=== PATIENT | male | born 1950 | race Caucasian/White ===

== ENCOUNTER 2023-06-03 08:11 | Outpatient (CLI) | payer OTHER, MEDICARE, SELFPAY ==
[2023-06-03 19:32] LABS: Alanine Aminotransferase 20 U/L (6-50); Albumin Level 3.5 g/dL (3.5-5.1); Alkaline Phosphatase 50 U/L (38-126); Anion Gap 4 mmol/L (8-16); Aspartate Amino Transferase 29 U/L (17-59); Bilirubin,Total 0.4 mg/dL (0.2-1.3); Blood Urea Nitrogen 22 mg/dL (9-20); Calcium 8.6 mg/dL (8.4-10.2); Carbon Dioxide 27 mmol/L (22-30); Chloride 107 mmol/L (98-107); Cholesterol 130 mg/dL (0-200); Estimated Glomerular Filt Rate > 60; Glucose 111 mg/dL (65-110); HDL Direct 33 mg/dL; Potassium 4.2 mmol/L (3.4-5.0); Sodium 138 mmol/L (137-145); Triglycerides 104 mg/dL (<150)
[2023-06-03 19:42] LABS: LDL Cholesterol Direct 75 mg/dL
[2023-06-04 17:38] LABS: Prostate Specific Antigen 1.5 ng/mL (< OR = 4.0)
== END 2023-06-03 08:12 | disposition home or self-care (01) ==
PROVIDERS: PCP Family Medicine; Visit Provider Physician Assistant
DX: E11.9 Type 2 diabetes mellitus without complications (principal); E78.5 Hyperlipidemia, unspecified; I10 Essential (primary) hypertension; Z12.5 Encounter for screening for malignant neoplasm of prostate
CPT/HCPCS: 36415; 80053; 80061; 83036; 84153; G0103

== ENCOUNTER 2023-12-20 11:55 | Outpatient (CLI) | payer MEDICARE, SELFPAY ==
[2023-12-20 17:22] LABS: Basophils Absolute Auto 0.1 K/mm3 (0.0-0.1); Eosinophils Absolute Auto 0.4 K/mm3 (0-0.3); Eosinophils Percent Auto 4.5 % (0-4.4); Hematocrit 42.3 % (42.0-52.0); Immature Granulocyte Absolute 0.02 K/mm3 (0.00-0.031); Immature Granulocyte Percent A 0.2 % (0-0.5); Lymphocytes Absolute Auto 2.59 K/mm3 (0.9-3.2); Lymphocytes Percent Auto 32.3 % (18.3-44.2); Mean Corpuscular HGB Conc 33.1 g/dl (32-36); Mean Corpuscular Hemoglobin 30.6 pg (26-34); Mean Corpuscular Volume 92.6 fl (80-100); Mean Platelet Volume 10.7 fl (7.4-10.4); Monocytes Absolute Auto 0.6 K/mm3 (0.1-0.6); Monocytes Percent Auto 6.9 % (2.6-8.5); Neutrophils Absolute Auto 4.4 K/mm3 (1.3-6.7); Neutrophils Percent Auto 55.1 % (45.5-73.1); Platelet Count Result 199 k/mm3 (150-375); Red Blood Count 4.57 M/mm3 (4.6-6.20); Red Cell Distribution Width 13.1 % (11.5-14.5)
[2023-12-20 17:31] LABS: Hemoglobin A1C 5.9 % (<5.7)
[2023-12-20 18:33] LABS: Alanine Aminotransferase 20 U/L (6-50); Albumin Level 3.8 g/dL (3.5-5.1); Alkaline Phosphatase 54 U/L (38-126); Anion Gap 7 mmol/L (4-12); Aspartate Amino Transferase 31 U/L (17-59); Bilirubin,Total 0.4 mg/dL (0.2-1.3); Blood Urea Nitrogen 27 mg/dL (9-20); Calcium 9.4 mg/dL (8.4-10.2); Carbon Dioxide 24 mmol/L (22-30); Chloride 108 mmol/L (98-107); Cholesterol 125 mg/dL (0-200); Estimated Glomerular Filt Rate > 60; Glucose 117 mg/dL (65-110); HDL Direct 35 mg/dL; Potassium 3.8 mmol/L (3.4-5.0); Sodium 139 mmol/L (137-145); Triglycerides 120 mg/dL (<150)
[2023-12-20 18:44] LABS: LDL Cholesterol Direct 74 mg/dL
== END 2023-12-20 11:56 | disposition home or self-care (01) ==
LOC: ANHGOSHLAB 11:58
PROVIDERS: PCP Family Medicine; Visit Provider Physician Assistant
DX: D64.9 Anemia, unspecified (principal); E11.9 Type 2 diabetes mellitus without complications; E78.5 Hyperlipidemia, unspecified; I10 Essential (primary) hypertension
CPT/HCPCS: 36415; 80053; 80061; 83036; 85025

== ENCOUNTER 2024-07-21 11:14 | Outpatient (CLI) | payer MEDICARE, SELFPAY ==
[2024-07-21 14:44] LABS: Hemoglobin A1C 6.2 % (<5.7)
[2024-07-21 14:52] LABS: Alanine Aminotransferase 16 U/L (6-50); Albumin Level 3.8 g/dL (3.5-5.1); Alkaline Phosphatase 49 U/L (38-126); Anion Gap 8 mmol/L (4-12); Aspartate Amino Transferase 33 U/L (17-59); Bilirubin,Total 0.3 mg/dL (0.2-1.3); Blood Urea Nitrogen 18 mg/dL (9-20); Calcium 8.7 mg/dL (8.4-10.2); Carbon Dioxide 27 mmol/L (22-30); Chloride 107 mmol/L (98-107); Cholesterol 119 mg/dL (0-200); Estimated Glomerular Filt Rate > 60; Glucose 103 mg/dL (65-110); HDL Direct 33 mg/dL; Sodium 142 mmol/L (137-145); Triglycerides 101 mg/dL (<150)
[2024-07-21 15:03] LABS: LDL Cholesterol Direct 60 mg/dL
[2024-07-21 15:21] LABS: Prostate Specific Antigen 1.8 ng/mL (< OR = 4.0)
[2024-07-21 15:56] LABS: Basophils Absolute Auto 0.1 K/mm3 (0.0-0.1); Basophils Percent Auto 0.8 % (0.2-1.2); Eosinophils Absolute Auto 0.5 K/mm3 (0-0.3); Eosinophils Percent Auto 6.3 % (0-4.4); Hematocrit 42.3 % (42.0-52.0); Hemoglobin 13.8 g/dL (14.0-18.0); Immature Granulocyte Absolute 0.02 K/mm3 (0.00-0.031); Immature Granulocyte Percent A 0.2 % (0-0.5); Lymphocytes Absolute Auto 2.97 K/mm3 (0.9-3.2); Lymphocytes Percent Auto 35.1 % (18.3-44.2); Mean Corpuscular HGB Conc 32.6 g/dl (32-36); Mean Corpuscular Volume 95.1 fl (80-100); Mean Platelet Volume 10.6 fl (7.4-10.4); Monocytes Absolute Auto 0.6 K/mm3 (0.1-0.6); Monocytes Percent Auto 6.9 % (2.6-8.5); Neutrophils Absolute Auto 4.3 K/mm3 (1.3-6.7); Neutrophils Percent Auto 50.7 % (45.5-73.1); Platelet Count Result 197 k/mm3 (150-375); Red Blood Count 4.45 M/mm3 (4.6-6.20); Red Cell Distribution Width 13.5 % (11.5-14.5); White Blood Count 8.5 K/mm3 (4.5-10.0)
[2024-07-21 17:17] LABS: Vitamin D 25 Hydroxy < 12.8 ng/mL
== END 2024-07-21 11:15 | disposition home or self-care (01) ==
PROVIDERS: PCP Family Medicine; Visit Provider Family Medicine
DX: E11.9 Type 2 diabetes mellitus without complications (principal); E55.9 Vitamin D deficiency, unspecified; Z12.5 Encounter for screening for malignant neoplasm of prostate; E78.2 Mixed hyperlipidemia; R53.83 Other fatigue
CPT/HCPCS: 36415; 80053; 80061; 82306; 83036; 84153; 85025; G0103

== ENCOUNTER 2025-01-26 10:38 | Outpatient (CLI) | payer MEDICARE, SELFPAY ==
--- OUTSIDE RECORDS SUMMARY | 2025-01-26 10:53 | XMS_ITS | Clinical Summary ---
Author Organization [facility] [place] [address] Address [address] [place] [address] Care Team Providers Care Vice President Of Software Engineering Name Role Phone Vy Garcia MD Primary Care Provider [phone]- [phone] Allergies No known active allergies Medications hydroCHLOROthia zide (HYDRODIURIL) 25 mg tablet 1 tablet daily 3 12/01/2018 Active allopurinol (ZYLOPRIM) 300 mg tablet 1 tablet daily 2 12/01/2018 Active CARTIA XT 240 mg 24 hr capsule 1 tablet 2 (two) times a day 3 12/01/2018 Active doxazosin (CARDURA) 8 mg tablet Take 8 mg by mouth nightly 3 01/24/2019 Active lisinopril (PRINIVIL,ZESTR IL) 40 mg tablet Take 40 mg by mouth 2 (two) times a day 3 01/24/2019 Active metFORMIN (GLUCOPHAGE) 500 mg tablet 1 tablet 2 (two) times a day 3 01/14/2019 Active metoprolol XL (TOPROL-XL) 25 mg 24 hr tablet Take 25 mg by mouth daily 3 02/07/2019 Active simvastatin (ZOCOR) 20 mg tablet 1 tablet daily 2 12/01/2018 Active aspirin 81 mg enteric coated tablet Take 81 mg by mouth daily Active Active Problems Problem Noted Date Diagnosed Date 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 Social History Tobacco Use Types Packs/Day Years Used Date Smoking Tobacco: Former Smokeless Tobacco: Former Alcohol Use Standard Drinks/Week Comments Never 0 (1 standard drink = 0.6 oz pur e alcohol) AUDIT-C Answer Date Recorded Frequency of Alcohol Consumption Never 02/19/2019 Average Number of Drinks Not on file 06/13/2 019 Frequency of Binge Drinking Not on file 02/07 Personal Safety Answer Date Recorded Getting School Help Needed Not on file 11/21 Sex and Gender Information Value Date Recorded Sex Assigned at Not on file Legal 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 Gender Identity Not on file Sexual Orientation Not on file Obstetrics History Last Filed Vital Signs Vital Sign Reading Time Taken Comments Blood Pressure 154/68 08/27/2019 10:23 AM OUTSIDE MAINTENANCE WORKER Pulse 55 08/27/2019 10:23 AM OUTSIDE MAINTENANCE WORKER Temperature - - Respiratory Rate - - Oxygen Saturation 97% 08/27/2019 10:23 AM OUTSIDE MAINTENANCE WORKER Inhaled Oxygen Concentration - - Weight 113.4 kg (250 lb) 08/27/2019 10:23 AM OUTSIDE MAINTENANCE WORKER Height 172.7 cm (5' 8 ) 08/27/2019 10:23 AM OUTSIDE MAINTENANCE WORKER Body Mass Index 38.01 08/27/2019 10:23 AM OUTSIDE MAINTENANCE WORKER Plan of Treatment Not on file Insurance [facility] Care Teams Vice President Of Software Engineering Relationship Specialty Start Date End Date Vy Garcia MD PCP - General Family Practice 06/30/18
--- OUTSIDE RECORDS SUMMARY | 2025-01-26 10:53 | XMS_ITS | Referral Summary ---
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 Gender Identity Not on file Sexual Orientation Not on file Last Filed Vital Signs Vital Sign Reading Time Taken Comments Blood Pressure 154/68 08/27/2019 10:23 AM RESEARCH CENTER PARTNER Pulse 55 08/27/2019 10:23 AM RESEARCH CENTER PARTNER Temperature - - Respiratory Rate - - Oxygen Saturation 97% 08/27/2019 10:23 AM RESEARCH CENTER PARTNER Inhaled Oxygen Concentration - - Weight 113.4 kg (250 lb) 08/27/2019 10:23 AM RESEARCH CENTER PARTNER Height 172.7 cm (5' 8 ) 08/27/2019 10:23 AM RESEARCH CENTER PARTNER Body Mass Index 38.01 08/27/2019 10:23 AM RESEARCH CENTER PARTNER Plan of Treatment Not on file Insurance [facility] Care Teams Tobacco Wetter Relationship Specialty Start Date End Date Vy Garcia MD PCP - General Family Practice 06/30/18
[2025-01-26 13:28] LABS: Alanine Aminotransferase 19 U/L (6-50); Albumin Level 3.9 g/dL (3.5-5.1); Alkaline Phosphatase 53 U/L (38-126); Anion Gap 7 mmol/L (4-12); Aspartate Amino Transferase 54 U/L (17-59); Bilirubin,Total 0.3 mg/dL (0.2-1.3); Blood Urea Nitrogen 26 mg/dL (9-20); Calcium 8.8 mg/dL (8.4-10.2); Carbon Dioxide 26 mmol/L (22-30); Chloride 107 mmol/L (98-107); Cholesterol 113 mg/dL (0-200); Estimated Glomerular Filt Rate > 60; Glucose 105 mg/dL (65-110); HDL Direct 33 mg/dL; Potassium 4.2 mmol/L (3.4-5.0); Sodium 140 mmol/L (137-145); Triglycerides 88 mg/dL (<150)
[2025-01-26 13:30] LABS: Basophils Absolute Auto 0.1 K/mm3 (0.0-0.1); Basophils Percent Auto 0.8 % (0.2-1.2); Eosinophils Absolute Auto 0.3 K/mm3 (0-0.3); Eosinophils Percent Auto 3.7 % (0-4.4); Hematocrit 43.6 % (42.0-52.0); Hemoglobin 14.3 g/dL (14.0-18.0); Immature Granulocyte Absolute 0.02 K/mm3 (0.00-0.031); Immature Granulocyte Percent A 0.3 % (0-0.5); Lymphocytes Absolute Auto 2.63 K/mm3 (0.9-3.2); Lymphocytes Percent Auto 34.4 % (18.3-44.2); Mean Corpuscular HGB Conc 32.8 g/dl (32-36); Mean Corpuscular Hemoglobin 30.2 pg (26-34); Mean Corpuscular Volume 92.2 fl (80-100); Mean Platelet Volume 10.5 fl (7.4-10.4); Monocytes Absolute Auto 0.5 K/mm3 (0.1-0.6); Neutrophils Absolute Auto 4.2 K/mm3 (1.3-6.7); Neutrophils Percent Auto 54.8 % (45.5-73.1); Platelet Count Result 211 k/mm3 (150-375); Red Blood Count 4.73 M/mm3 (4.6-6.20); Red Cell Distribution Width 13.1 % (11.5-14.5); White Blood Count 7.7 K/mm3 (4.5-10.0)
[2025-01-26 13:35] LABS: Iron 77 ug/dL (49-181)
[2025-01-26 13:43] LABS: LDL Cholesterol Direct 53 mg/dL
[2025-01-26 13:47] LABS: Percent Iron Saturation 24 % (20-50)
[2025-01-26 14:05] LABS: Creatinine Urine 108.5 mg/dL
[2025-01-26 14:08] LABS: Microalbumin Urine Random 100.9 mg/L (0-16.7)
[2025-01-26 14:20] LABS: Vitamin D 25 Hydroxy < 12.8 ng/mL
[2025-01-26 14:27] LABS: Hemoglobin A1C 5.9 % (<5.7)
[2025-01-26 14:51] LABS: Folic Acid 6.6 ng/mL (2.76->20)
== END 2025-01-26 10:39 | disposition home or self-care (01) ==
PROVIDERS: PCP Family Medicine; Visit Provider Family Medicine
DX: E11.9 Type 2 diabetes mellitus without complications (principal); D64.9 Anemia, unspecified; E55.9 Vitamin D deficiency, unspecified; E78.2 Mixed hyperlipidemia
CPT/HCPCS: 36415; 80053; 80061; 82043; 82306; 82607; 82728; 82746; 83036; 83540; 83550; 85025

== ENCOUNTER 2025-08-11 10:41 | Outpatient (CLI) | payer MEDICARE, SELFPAY ==
--- OUTSIDE RECORDS SUMMARY | 2025-08-11 12:12 | XMS_ITS | Clinical Summary ---
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 KEEPER Gender Identity Not on file Sexual Orientation Not on file Last Filed Vital Signs Vital Sign Reading Time Taken Comments Blood Pressure 154/68 08/27/2019 10:23 AM DIE KEEPER Pulse 55 08/27/2019 10:23 AM DIE KEEPER Temperature - - Respiratory Rate - - Oxygen Saturation 97% 08/27/2019 10:23 AM DIE KEEPER Inhaled Oxygen Concentration - - Weight 113.4 kg (250 lb) 08/27/2019 10:23 AM DIE KEEPER Height 172.7 cm (5' 8) 08/27/2019 10:23 AM DIE KEEPER Body Mass Index 38.01 08/27/2019 10:23 AM DIE KEEPER Plan of Treatment Not on file Insurance [facility] Care Teams Peanut Vendor Relationship Specialty Start Date End Date yV Garcia MD PCP - General Family Practice 06/30/18
[2025-08-11 18:49] LABS: Alanine Aminotransferase 23 U/L (6-50); Albumin Level 3.9 g/dL (3.5-5.1); Alkaline Phosphatase 70 U/L (38-126); Anion Gap 8 mmol/L (4-12); Aspartate Amino Transferase 35 U/L (17-59); Bilirubin,Total 0.5 mg/dL (0.2-1.3); Blood Urea Nitrogen 28 mg/dL (9-20); Calcium 9.1 mg/dL (8.4-10.2); Carbon Dioxide 23 mmol/L (22-30); Chloride 109 mmol/L (98-107); Cholesterol 151 mg/dL (0-200); Estimated Glomerular Filt Rate > 60; Glucose 92 mg/dL (65-110); HDL Direct 36 mg/dL; Potassium 3.9 mmol/L (3.4-5.0); Sodium 140 mmol/L (137-145); Total Protein 7.3 g/dL (6.3-8.2); Triglycerides 117 mg/dL (<150)
[2025-08-11 18:56] LABS: Hematocrit 47.4 % (42.0-52.0); Hemoglobin 15.7 g/dL (14.0-18.0); Immature Granulocyte Percent A 0.3 % (0-0.5); Lymphocytes Absolute Auto 2.85 K/mm3 (0.9-3.2); Mean Corpuscular HGB Conc 33.1 g/dl (32-36); Mean Corpuscular Hemoglobin 30.7 pg (26-34); Mean Corpuscular Volume 92.8 fl (80-100); Nucleated Red Blood Cells Absolute Auto 0.000 K/mm3 (0.0-0.012); Nucleated Red Blood Cells Perc 0.0 % (0.0-0.2); Platelet Count Result 208 k/mm3 (150-375); Red Blood Count 5.11 M/mm3 (4.6-6.20); White Blood Count 9.4 K/mm3 (4.5-10.0)
[2025-08-11 19:45] LABS: Vitamin B12 300.0 pg/mL (239-931)
[2025-08-11 19:53] LABS: Hemoglobin A1C 6.1 % (<5.7)
== END 2025-08-11 10:42 | disposition home or self-care (01) ==
LOC: ANHGOSHLAB 10:41
DX: E53.8 Deficiency of other specified B group vitamins (principal); E78.2 Mixed hyperlipidemia; R53.83 Other fatigue; E11.9 Type 2 diabetes mellitus without complications
CPT/HCPCS: 36415; 80053; 80061; 82607; 83036; 85025